=== PATIENT | male | born 1960 | race Caucasian/White ===

== ENCOUNTER 2019-03-28 10:08 | Emergency (ER) | payer MEDICARE ==
[~2019-03-28] VITALS: Ht 180.3 cm; Wt 77.3 kg
[2019-03-28 10:13] VITALS: Ht 180.3 cm; Wt 77.3 kg
[2019-03-28] MEDS ORDERED: VOLTAREN75 MG PO (11:09)
[2019-03-28] MEDS ORDERED: TYLENOL W/CODEI1 TAB PO (11:09)
[2019-03-28 13:50] VITALS: BP 133/82
[2019-04-03 06:08] VITALS: Ht 180.3 cm; Wt 77.3 kg
== END 2019-03-28 13:10 | disposition home or self-care (01) ==
LOC: D.ER 10:08
DX: S52.022A Displaced fracture of olecranon process without intraarticular extension of left ulna, initial encounter for closed fracture (principal); W18.30XA Fall on same level, unspecified, initial encounter; Y93.89 Activity, other specified; Y92.89 Other specified places as the place of occurrence of the external cause

== ENCOUNTER 2019-04-03 05:25 | Day surgery (SDC) | payer MEDICARE ==
[2019-04-02 12:07] LABS: BASOPHILS 0.4 % (0-2); EOSINOPHILS 0.6 % (0-7); HEMOGLOBIN 12.8 g/dL (13.5-17.5); IMMATURE GRANULOCYTES 0.2 % (0-5); LYMPHOCYTES 18.4 % (15-50); MCH 32.8 pg (26.0-34.0); MCHC 34.6 g/dL (31.0-37.0); MCV 94.9 fL (80.0-100.0); MEAN PLATELET VOLUME 11.8 fL (7.4-10.4); MONOCYTES 5.5 % (2-11); NEUTROPHILS 74.9 % (40-80); PLATELET COUNT 215 10x3/uL (130-400); RDW 13.1 % (11.5-14.5); WBC 10.1 10x3/uL (4.8-10.8)
[2019-04-02 12:30] LABS: CALC OSMOLALITY 278 mosm/kg (275-300); CARBON DIOXIDE 28.8 mmol/L (21.0-32.0); CHLORIDE - SERUM 102 mmol/L (98-107); CREATININE - SERUM 0.9 mg/dL (0.6-1.3); GLUCOSE 91 mg/dL (74-106); POTASSIUM - SERUM 3.9 mmol/L (3.5-5.1); SODIUM 141 mmol/L (136-145); UREA NITROGEN 8 mg/dL (7-18); eGFR NON AFRICAN AMERICAN > 90 mL/min (90-120)
[~2019-04-03] VITALS: Ht 180.3 cm; Wt 59.0 kg
[~2019-04-03 05:25] MED LIST: TYLENOL W/CODEI1 TAB PO; VOLTAREN75 MG PO
[2019-04-03 06:08] VITALS: Ht 180.3 cm; Wt 59.0 kg
== END 2019-04-03 11:30 | disposition home or self-care (01) ==
LOC: D.OPS 05:25 → D.PAN 07:30 → D.OPS 07:30 → D.PAN 09:50 → D.OPS 09:50
PROVIDERS: ATTEND Orthopaedic Surgery
DX: S52.022A Displaced fracture of olecranon process without intraarticular extension of left ulna, initial encounter for closed fracture (principal); X58.XXXA Exposure to other specified factors, initial encounter

== ENCOUNTER 2019-04-07 11:33 | Emergency (ER) | payer MEDICARE ==
[2019-04-07 11:39] VITALS: BP 139/74; Ht 180.3 cm
== END 2019-04-07 12:38 | disposition left against medical advice (07) ==
LOC: D.ER 11:33
DX: Z76.0 Encounter for issue of repeat prescription (principal)

== ENCOUNTER 2019-10-21 09:56 | Emergency (ER) | payer MEDICARE ==
[~2019-10-21] VITALS: Ht 180.3 cm; Wt 56.8 kg
[2019-10-21 10:07] VITALS: BP 138/76; Ht 180.3 cm; Wt 56.8 kg
== END 2019-10-21 10:50 | disposition home or self-care (01) ==
LOC: D.ER 09:56
DX: K14.3 Hypertrophy of tongue papillae (principal); Z71.1 Person with feared health complaint in whom no diagnosis is made; F17.210 Nicotine dependence, cigarettes, uncomplicated; M54.9 Dorsalgia, unspecified